=== PATIENT | male | born 1990 | race Caucasian/White ===

== ENCOUNTER 2018-08-15 11:45 | Emergency (ER) | payer OTHER ==
[2018-08-15 11:51] VITALS: BP 131/79; PULSE 64; RESP 18; TEMP 98.5
--- NOTE | 2018-08-15 12:08 | ED ---
General Adult HPI - General Chief complaint: ENT Stated complaint: rt ear clogged Time Seen by Provider: 08/15/18 11:51 Source: patient, RN notes reviewed, old records reviewed Mode of arrival: ambulatory Limitations: no limitations - History of Present Illness Initial comments: 28-year-old male presents for evaluation of right ear loss of hearing and s ensation that his ear is clogged. He was seen at an outside emergency department prescribed amoxicillin for concern of right otitis media. He's had intermittent hearing loss and this year. He has remote history of ear surgery as a child. Uncertain exactly what he had done. No fever or chills. No significant URI symptoms. He does cut grass for a living. - Related Data Previous Rx's Medication Instructions Recorded Fluticasone Nasal [place] [Flonase 2 spr EA NOSTRIL DAILY #1 bottle 08/15/18 Nasal [place]] Loratadine [Claritin] 10 mg PO DAILY #30 tab 08/15/18 Allergies Allergy/AdvReac Type Severity Reaction Status Date / Time No Known Allergies Allergy Verified 08/15/18 11:51 Review of Systems ROS Statement: Those systems with pertinent positive or pertinent negative responses have been documented in the HPI. ROS Other: All systems not noted in ROS Statement are negative. Past Medical History Past Medical History: No Reported History History of Any Multi-Drug Resistant Organisms: None Reported Past Surgical History: Ear Surgery, Orthopedic Surgery Past Psychological History: No Psychological Hx Reported Smoking Status: Current every day smoker Past Alcohol Use History: None Reported Past Drug Use History: None Reported General Exam Limitations: no limitations General appearance: alert, in no apparent distress Head exam: Present: atraumatic, normocephalic Eye exam: Present: normal appearance, PERRL, EOMI ENT exam: Absent: TM's normal bilaterally (No cerumen right external auditory canal, he does have opacification of the right TM) Respiratory exam: Present: normal lung sounds bilaterally. Absent: respiratory distress, wheezes Cardiovascular Exam: Present: regular rate, normal rhythm GI/Abdominal exam: Present: soft. Absent: distended, tenderness Extremities exam: Present: normal inspection, normal capillary refill. Absent: pedal edema Neurological exam: Present: alert, oriented X3 Psychiatric exam: Present: normal affect, normal mood Skin exam: Present: warm, dry, intact. Absent: cyanosis, diaphoretic Course Vital Signs 08/15/18 11:48 Temperature 98.5 F Pulse Rate 64 Respiratory 18 Rate Blood Pressure 131/79 O2 Sat by Pulse 99 Oximetry Medical Decision Making - Medical Decision Making [id number] male with right ear effusion. He is currently on amoxicillin which was prescribed yesterday at an outside hospital. He will be prescribed Claritin and Flonase. He is given ENT follow-up Disposition Clinical Impression: Middle ear effusion Disposition: HOME SELF-CARE Condition: Good Instructions (If sedation given, give patient instructions): Earache (ED), Ear Infection (ED) Prescriptions: Loratadine [Claritin] 10 mg PO DAILY #30 tab Fluticasone Nasal [place] [Flonase Nasal [place]] 2 spr EA NOSTRIL DAILY #1 bottle Is patient prescribed a controlled substance at d/c from ED?: No Referrals: None,Stated [Primary Care Provider] - 1-2 days Romain Mahajan DO [Doctor of Osteopathic Medicine] - 1-2 days Time of Disposition: 12:07
== END 2018-08-15 12:11 | disposition home or self-care (01) ==
LOC: EC 11:45
DX: H74.8X1 Other specified disorders of right middle ear and mastoid (principal); F17.200 Nicotine dependence, unspecified, uncomplicated
CPT/HCPCS: 99283